=== PATIENT | female | born 1950 | race Caucasian/White ===

== ENCOUNTER → 2017-05-01 | Outpatient (CLI) | payer MEDICARE, OTHER | END | disposition home or self-care (01) | LOC: KCIC MRI 15:41 | DX: S83.242D Other tear of medial meniscus, current injury, left knee, subsequent encounter (principal); M17.12 Unilateral primary osteoarthritis, left knee; M22.42 Chondromalacia patellae, left knee; X58.XXXD Exposure to other specified factors, subsequent encounter | CPT/HCPCS: 73721 ==

== ENCOUNTER 2019-12-04 23:40 | Inpatient (IN) | payer MEDICARE, OTHER ==
[~2019-12-04] VITALS: Ht 167.6 cm; Wt 106.5 kg
[2019-12-04 23:30] VITALS: BP 166/101
--- NOTE | 2019-12-04 23:30 | NUR ---
Admit from [facility] ED. DX: acute appendicitis. Lianet Cordova is an obese white female admitted to room 416 w/ c/o RLQ pain and nausea today. Covid swab done x2 per lab protocol. Call light in reach.
[2019-12-05] VITALS (12 sets, daily range): BP systolic 102–139; BP diastolic 58–81
[2019-12-05] MEDS ORDERED: HYDROmorphone 2 MG/ML VIAL IV PRN ×2 (00:30)
[2019-12-05] MEDS ORDERED: ONDANSETRON PF 4 MG/2 ML VIAL. IVP PRN ×2 (00:30→10:15)
[2019-12-05] MEDS ORDERED: MORPHINE SULFATE 2 MG/ML VIAL. IV PRN (00:30)
[2019-12-05] MEDS: HEPARIN for SUB-Q USE 5,000 UNIT/ML VIAL. SQ SCH ×3 (06:00→22:31)
[2019-12-05] MEDS: PIPERACILLIN/TAZOBACTAM 4.5 GM in IV NORMAL SALINE 100ML 100 ML IV SCH ×4 (06:00→23:53)
--- NOTE | 2019-12-05 07:29 | NUR ---
Heparin held d/t surgery today.
[2019-12-05 07:49] LABS: BASO % 0 % (0-3); EOS % 0 % (0-3); HEMATOCRIT 39.6 % (36.0-47.0); HEMOGLOBIN 13.6 g/dL (12.0-15.5); LYMPH # 1.1 x10^3/uL (1.0-4.8); LYMPH % 10 % (24-48); MEAN CORPUSCULAR HEMOGLOBIN 31 pg (25-35); MEAN CORPUSCULAR HGB CONC 34 g/dL (31-37); MEAN CORPUSCULAR VOLUME 89 fL (79-100); MONO # 0.9 x10^3/uL (0.0-1.1); MONO % 8 % (0-9); NEUT # 9.6 x10^3/uL (1.8-7.7); NEUT % 82 % (31-73); PLATELET COUNT 250 x10^3/uL (140-400); RED BLOOD COUNT 4.44 x10^6/uL (3.50-5.40); RED CELL DISTRIBUTION WIDTH 13.7 % (11.5-14.5); WHITE BLOOD COUNT 11.7 x10^3/uL (4.0-11.0)
[2019-12-05 08:04] LABS: PROTHROMBIN TIME PATIENT 13.7 SEC (11.7-14.0)
--- NOTE | 2019-12-05 08:22 | PDOC2 ---
NICKIE CONTI POLE TESTER 12/05/19 0822: CONSULT Date of Consult Date of Consult DATE: 12/05/19 TIME: 08:19 Reason for Consult Reason for Consult: appendicitis Referring Physician Referring Physician: MARK HERNANDEZ Identification/Chief Complaint Chief Complaint abdominal pain Source Source: Chart review, Patient History of Present Illness Reason for Visit: Acute onset RLQ pain starting yesterday. Associated nausea, chills. No emesis, no constipation or diarrhea. Pain constant, movement worsened, nothing improved it. Now better after medication. No similar symptoms in past Past Medical History Cardiovascular: HTN, Hyperlipidemia Past Surgical History Past Surgical History: No pertinent history Family History Family History: Other (noncontributory to current illness ) Social History No ALCOHOL: rare Drugs: None Lives: with Family Current Medications Current Medications Current Medications Piperacillin Sod/ Tazobactam Sod 4.5 gm/Sodium Chloride 100 ml @ 200 mls/hr Q6HRS IV Last administered on 12/05/19at 06:00; Start 12/05/19 at 06:00 Morphine Sulfate (Morphine Sulfate) 2 mg PRN Q1HR PRN IV PAIN; Start 12/05/19 at 00:30 Hydromorphone HCl (Dilaudid) 0.2 mg PRN Q1HR PRN IV PAIN; Start 12/05/19 at 00:30 Hydromorphone HCl (Dilaudid) 0.4 mg PRN Q1HR PRN IV PAIN; Start 12/05/19 at 00:30 Heparin Sodium (Porcine) (Heparin Sodium) 5,000 unit Q8HRS SQ ; Start 12/05/19 at 06:00 Ondansetron HCl (Zofran) 4 mg PRN Q6HRS PRN IVP NAUSEA/VOMITING; Start 12/05/19 at 00:30 Active Scripts Active Allergies Allergies: Coded Allergies: No Known Drug Allergies (Unverified , 05/29/13) ROS General: YES: Fatigue, Other (no fevers ) PSYCHOLOGICAL ROS: No: Anxiety, Depression Eyes: No Blurry vision, No Double vision HEENT: No: Sore Throat Hematological and Lymphatic: No: Bleeding Problems, Blood Clots Respiratory: No: Cough, Shortness of breath Cardiovascular: No Chest Pain, No Palpitations Gastrointestinal: Yes Other (see hpi) Genitourinary: No Dysuria, No Hematuria Musculoskeletal: No Joint Pain, No Muscle Pain Neurological: No Impaired Coord/balance, No Numbness/Tingling Skin: No Pruritus, No Rash Physical Exam General: Alert, Oriented X3, Cooperative HEENT: Atraumatic, PERRLA Lungs: Clear to auscultation, Normal air movement Heart: Regular rate, Normal S1, Normal S2 Abdomen: Soft, Other (TTP RLQ, no guarding or rebound ) Extremities: No clubbing, No cyanosis Skin: No rashes, No breakdown Neuro: Normal gait, Normal speech Psych/Mental Status: Mental status NL, Mood NL MUSCULOSKELETAL: No deformity, No swelling Vitals VITALS Vital Signs Date Time Temp Pulse Resp B/P (MAP) Pulse Ox O2 Delivery O2 Flow Rate FiO2 12/05/19 03:00 98.4 94 18 116/60 (78) 98 Room Air 98.4 Labs Labs Laboratory Tests Test 12/05/19 00:15 12/05/19 07:15 SARS-CoV-2 Antigen (Rapid) Negative (NEGATIVE) White Blood Count 11.7 x10^3/uL (4.0-11.0) Red Blood Count 4.44 x10^6/uL (3.50-5.40) Hemoglobin 13.6 g/dL (12.0-15.5) Hematocrit 39.6 % (36.0-47.0) Mean Corpuscular Volume 89 fL (79-100) Mean Corpuscular Hemoglobin 31 pg (25-35) Mean Corpuscular Hemoglobin Concent 34 g/dL (31-37) Red Cell Distribution Width 13.7 % (11.5-14.5) Platelet Count 250 x10^3/uL (140-400) Neutrophils (%) (Auto) 82 % (31-73) Lymphocytes (%) (Auto) 10 % (24-48) Monocytes (%) (Auto) 8 % (0-9) Eosinophils (%) (Auto) 0 % (0-3) Basophils (%) (Auto) 0 % (0-3) Neutrophils # (Auto) 9.6 x10^3/uL (1.8-7.7) Lymphocytes # (Auto) 1.1 x10^3/uL (1.0-4.8) Monocytes # (Auto) 0.9 x10^3/uL (0.0-1.1) Eosinophils # (Auto) 0.0 x10^3/uL (0.0-0.7) Basophils # (Auto) 0.0 x10^3/uL (0.0-0.2) Prothrombin Time 13.7 SEC (11.7-14.0) Prothromb Time International Ratio 1.1 (0.8-1.1) Activated Partial Thromboplast Time 40 SEC (24-38) Laboratory Tests Test 12/05/19 00:15 12/05/19 07:15 SARS-CoV-2 Antigen (Rapid) Negative (NEGATIVE) White Blood Count 11.7 x10^3/uL (4.0-11.0) Red Blood Count 4.44 x10^6/uL (3.50-5.40) Hemoglobin 13.6 g/dL (12.0-15.5) Hematocrit 39.6 % (36.0-47.0) Mean Corpuscular Volume 89 fL (79-100) Mean Corpuscular Hemoglobin 31 pg (25-35) Mean Corpuscular Hemoglobin Concent 34 g/dL (31-37) Red Cell Distribution Width 13.7 % (11.5-14.5) Platelet Count 250 x10^3/uL (140-400) Neutrophils (%) (Auto) 82 % (31-73) Lymphocytes (%) (Auto) 10 % (24-48) Monocytes (%) (Auto) 8 % (0-9) Eosinophils (%) (Auto) 0 % (0-3) Basophils (%) (Auto) 0 % (0-3) Neutrophils # (Auto) 9.6 x10^3/uL (1.8-7.7) Lymphocytes # (Auto) 1.1 x10^3/uL (1.0-4.8) Monocytes # (Auto) 0.9 x10^3/uL (0.0-1.1) Eosinophils # (Auto) 0.0 x10^3/uL (0.0-0.7) Basophils # (Auto) 0.0 x10^3/uL (0.0-0.2) Prothrombin Time 13.7 SEC (11.7-14.0) Prothromb Time International Ratio 1.1 (0.8-1.1) Activated Partial Thromboplast Time 40 SEC (24-38) Assessment/Plan Assessment/Plan acute appendicitis plan lap appy today MARQUIS MCKEON MD 12/05/19 1231: CONSULT Assessment/Plan Assessment/Plan Pt seen and examined by myself; 69 year old female with abdominal pain X 1 day, localized to RLQ, evaluation consistent with appendicitis. PMH/PSH/ROS/SH as above; exam: alert, oriented, lungs clear, heart RR and R, abdomen obese, tender in RLQ, ext neg for edema. A/P) Suspect appendicitis, recommend lap appy. The details and risks of surgery were discussed with the patient. She would like to proceed. NICKIE CONTI APRN Dec 05, 2019 08:22 MARQUIS MCKEON MD Dec 05, 2019 12:31
[2019-12-05 08:28] LABS: ALBUMIN 3.3 g/dL (3.4-5.0); ALBUMIN/GLOBULIN RATIO 1.1 (1.0-1.7); CALCIUM 8.6 mg/dL (8.5-10.1); CREATININE 0.9 mg/dL (0.6-1.0); GFR 61.9; POTASSIUM 4.1 mmol/L (3.5-5.1); TOTAL BILIRUBIN 0.7 mg/dL (0.2-1.0); TOTAL PROTEIN 6.4 g/dL (6.4-8.2)
[2019-12-05] MEDS ORDERED: DESFLURANE > 120 MINUTES IH ONE (09:01)
[2019-12-05] MEDS ORDERED: PROPOFOL 10 MG/ML (20ML) VIAL. IV ONE (09:01)
[2019-12-05] MEDS ORDERED: LIDOCAINE 2% PF 5 ML VIAL. ONE (09:01)
[2019-12-05] MEDS ORDERED: ONDANSETRON PF 4 MG/2 ML VIAL. ONE (09:01)
[2019-12-05] MEDS ORDERED: ROCURONIUM 50 MG/5 ML VIAL. ONE ×2 (09:02→09:14)
[2019-12-05] MEDS ORDERED: fentaNYL PF VIAL 100 MCG/2 ML VIAL ONE ×2 (09:02→12:57)
[2019-12-05] MEDS ORDERED: HYDROmorphone 2 MG/ML VIAL ONE (09:15)
--- NOTE | 2019-12-05 09:44 | NUR ---
SW following. Discussed with RN, pt from [facility], room air, NPO, gets around, COVID-19 negative. Pt having surgery today to remove appendix. RN advised no SW needs at this time. SW will continue to follow.
[2019-12-05] MEDS ORDERED: IV RINGERS,LACTATED 1000ML 1,000 ML IV SCH (10:01)
[2019-12-05] MEDS ORDERED: BUPIVACAINE-EPI 0.5%-1:200000 MPF 30 ML VIAL. ONE (10:09)
[2019-12-05] MEDS ORDERED: MORPHINE SULFATE 2 MG/ML VIAL. IVP PRN (10:15)
[2019-12-05] MEDS ORDERED: fentaNYL PF VIAL 100 MCG/2 ML VIAL IVP PRN (10:15)
[2019-12-05] MEDS ORDERED: LIDOCAINE 1% PF 2 ML VIAL. ID PRN (10:15)
[2019-12-05] MEDS ORDERED: PROCHLORPERAZINE 10 MG/2 ML VIAL. IVP PRN (10:15)
[2019-12-05] MEDS ORDERED: HYDROmorphone 2 MG/ML VIAL IVP PRN (10:15)
--- NOTE | 2019-12-05 10:54 | NUR ---
Pt off unit for surgery.
[2019-12-05] MEDS ORDERED: SUCCINYLCHOLINE 200 MG/10 ML VIAL. ONE (11:35)
[2019-12-05] MEDS ORDERED: NEOSTIGMINE METHYLSULFATE 5 MG/5 ML SYRINGE. ONE (12:10)
[2019-12-05] MEDS ORDERED: GLYCOPYRROLATE 1 MG/5 ML VIAL. ONE (12:10)
--- NOTE | 2019-12-05 12:32 | PDOC4 ---
Operative Note Operative Note Preoperative Diagnosis: Acute Appendicitis Postoperative Diagnosis: Same Procedure: Laparoscopic appendectomy Surgeon: Jourdan Anesthesia: Gen. EBL: 10 mL Specimen: Appendix to pathology Drains: None Complications: None Indication: The patient is a 69 year-old female who reported to the emergency department with abdominal pain. The evaluation is consistent with acute appendicitis. The patient was offered surgical treatment with a laparoscopic appendectomy. The risks of surgery were discussed which include bleeding, infection, visceral injury, pain, anesthetic risk, potential need for additional surgery or procedure. The patient understands and would like to proceed. Description: The patient was taken to the operating room and placed supine on the operating table. Gen. anesthesia was performed. The abdomen was prepped with ChloraPrep and draped in a standard surgical manner. A LLQ incision was made through which a visualized 5 mm trocar was inserted. A pneumoperitoneum was created and the laparoscope was introduced. In the left lower quadrant a 5 mm trocar was inserted. In the suprapubic region a 12 mm trocar was inserted. The appendix was identified and appeared inflamed consistent with acute appendicitis. There was no clear evidence of perforation or periappendiceal abscess. The mesoappendix was bluntly from the appendix. The mesoappendix was controlled using several clips and it was divided. The appendix was then amputated off the cecum using an Endo DANIEL 45 stapling device. The appendix was then placed in an endoscopic bag and extracted at the suprapubic incision site. The fascia there was closed with 0 Vicryl and infiltrated with half percent Marcaine with epinephrine. The RLQ was visualized and the staple line appeared well intact and hemostasis was good. No other abnormalities were identified grossly. The remaining ports were removed and the pneumoperitoneum was relieved. The skin at all incision sites was closed with 4-0 Monocryl. Steri-Strips and dressings were applied. The patient tolerated the procedure well and was sent to the recovery room in stable condition. At the end of the case all counts were correct. MARQUIS MCKEON MD Dec 05, 2019 12:32
[2019-12-05] MEDS ORDERED: HYDROcodone/APAP 5/325MG 1 TAB TABLET PO PRN ×2 (12:45)
[2019-12-05] MEDS: fentaNYL PF VIAL 100 MCG/2 ML VIAL IVP PRN ×2 (13:02→13:10)
--- NOTE | 2019-12-05 13:36 | SSS ---
ADMIT DATE: CHIEF COMPLAINT: Appendicitis. HISTORY OF PRESENT ILLNESS: The patient is a pleasant middle-aged female who presented with abdominal pain to the ER. She has appendicitis. She has now been admitted to medical floor. She is now going to the OR. She had a laparoscopic appendectomy a few minutes ago. She is being examined in the postoperative area. I just discussed the case with Dr. Soliman who was the surgeon. He plans to discharge tomorrow. PAST MEDICAL HISTORY: Hypertension, hyperlipidemia, constipation, arthritis. FAMILY HISTORY: Diabetes. SOCIAL HISTORY: She does not drink, smoke or take drugs. MEDICATIONS: Reviewed, please refer to the MRAD. REVIEW OF SYSTEMS: Unobtainable, the patient is sedated. PHYSICAL EXAMINATION: VITALS: GENERAL: murmurs were noted. PHYSICAL EXAMINATION: VITALS: Within normal limits and are stable. GENERAL: She is sedated. HEENT: Normal cephalic atraumatic, external auditory canals are patent EYES: Extraocular muscles are intact, pupils are equally round and reactive to light and accommodation MUSCULOSKELETAL: Well developed, well nourished, good range of motion ENDOCRINE: No thyromegaly was palpated LYMPHATICS: No cervical chain or axillary nodes were noted HEMATOPOIETIC: No bruising NECK: Supple, no JVD, no thyromegaly was noted. LUNGS: Clear to auscultation in all lung sebastian without rhonchi or wheezing. HEART: RRR, S1, S2 present. Peripheral pulses intact, no obvious murmurs were noted. ABDOMEN: She has clean, dry and intact dressings at the trocar sites nocturia. NEUROLOGIC: She is sedated. PSYCHIATRIC: She is sedated. EXTREMITIES: Without any cyanosis, clubbing, or edema. Pedal pulses intact, Homans sign is negative. SKIN: No ulcerations or rashes, good skin turgor, no jaundice. VASCULAR: Good capillary refill, neurovascular bundle appears to be intact. ASSESSMENT AND PLAN: Postop laparoscopic appendectomy. She is doing well. We will do wound care, home meds, DVT prophylaxis. Full code. IV fluids, p.r.n. pain meds. Hope to discharge tomorrow if stable. NATALIE DAVEY DO DR: NELSON/shakira JOB#: [id number] / [id number]
[2019-12-06 03:09] VITALS: BP 112/62
[2019-12-06] MEDS: PIPERACILLIN/TAZOBACTAM 4.5 GM in IV NORMAL SALINE 100ML 100 ML IV SCH ×2 (05:36→10:35)
[2019-12-06] MEDS: HEPARIN for SUB-Q USE 5,000 UNIT/ML VIAL. SQ SCH ×2 (05:45→10:35)
[2019-12-06 07:00] VITALS: BP 119/70
--- NOTE | 2019-12-06 09:46 | PDOC ---
SURGICAL PROGRESS NOTE DATE: 12/06/19 TIME: 09:45 Subjective doing well pain much improved no nausea Vital Signs Vital Signs Date Time Temp Pulse Resp B/P (MAP) Pulse Ox O2 Delivery O2 Flow Rate FiO2 12/06/19 08:00 Room Air 12/06/19 07:00 98.2 73 18 119/70 (86) 94 98.2 12/05/19 16:10 3.0 I&O Intake and Output 12/06/19 07:00 Intake Total 1720 ml Output Total 110 ml Balance 1610 ml Intake Oral 720 ml IV Total 1000 ml Output Urine Total 100 ml Estimated Blood Loss 10 ml # Voids 3 General: Alert, Oriented X3, Cooperative Abdomen: Soft, Other (lap sites dry, incisional TTP) Labs Laboratory Tests Test 12/05/19 00:15 12/05/19 07:15 Coronavirus (PCR) Not detected (Not Detected) SARS-CoV-2 Antigen (Rapid) Negative (NEGATIVE) White Blood Count 11.7 x10^3/uL (4.0-11.0) Red Blood Count 4.44 x10^6/uL (3.50-5.40) Hemoglobin 13.6 g/dL (12.0-15.5) Hematocrit 39.6 % (36.0-47.0) Mean Corpuscular Volume 89 fL (79-100) Mean Corpuscular Hemoglobin 31 pg (25-35) Mean Corpuscular Hemoglobin Concent 34 g/dL (31-37) Red Cell Distribution Width 13.7 % (11.5-14.5) Platelet Count 250 x10^3/uL (140-400) Neutrophils (%) (Auto) 82 % (31-73) Lymphocytes (%) (Auto) 10 % (24-48) Monocytes (%) (Auto) 8 % (0-9) Eosinophils (%) (Auto) 0 % (0-3) Basophils (%) (Auto) 0 % (0-3) Neutrophils # (Auto) 9.6 x10^3/uL (1.8-7.7) Lymphocytes # (Auto) 1.1 x10^3/uL (1.0-4.8) Monocytes # (Auto) 0.9 x10^3/uL (0.0-1.1) Eosinophils # (Auto) 0.0 x10^3/uL (0.0-0.7) Basophils # (Auto) 0.0 x10^3/uL (0.0-0.2) Prothrombin Time 13.7 SEC (11.7-14.0) Prothromb Time International Ratio 1.1 (0.8-1.1) Activated Partial Thromboplast Time 40 SEC (24-38) Sodium Level 138 mmol/L (136-145) Potassium Level 4.1 mmol/L (3.5-5.1) Chloride Level 104 mmol/L (98-107) Carbon Dioxide Level 25 mmol/L (21-32) Anion Gap 9 (6-14) Blood Urea Nitrogen 11 mg/dL (7-20) Creatinine 0.9 mg/dL (0.6-1.0) Estimated GFR (Cockcroft-Gault) 61.9 BUN/Creatinine Ratio 12 (6-20) Glucose Level 107 mg/dL (70-99) Calcium Level 8.6 mg/dL (8.5-10.1) Total Bilirubin 0.7 mg/dL (0.2-1.0) Aspartate Amino Transf (AST/SGOT) 23 U/L (15-37) Alanine Aminotransferase (ALT/SGPT) 52 U/L (14-59) Alkaline Phosphatase 55 U/L (46-116) Total Protein 6.4 g/dL (6.4-8.2) Albumin 3.3 g/dL (3.4-5.0) Albumin/Globulin Ratio 1.1 (1.0-1.7) Assessment/Plan s/p appy ok to dc home FU 2 weeks script sent Justicifation of Admission Dx: Justifications for Admission: Justification of Admission Dx: Yes Comments: appendicitis NICKIE CONTI MANAGER COSTING Dec 06, 2019 09:46
[2019-12-06] MEDS ORDERED: HYDR-2761 PO (09:47)
--- NOTE | 2019-12-06 10:11 | NUR ---
SW following. Discussed with RN, pt from [facility]. Diet advanced to GI soft - if tolerates GI soft, pt may be able to discharge after lunch. RN advised no SW needs at this time. SW will continue to follow.
[2019-12-06 11:03] VITALS: BP 125/61
--- NOTE | 2019-12-06 11:30 | SNU/HH DC ---
DISCHARGE WITH HOME HEALTH DISCHARGE INFORMATION: Condition on Discharge: Stable CODE STATUS: Code Status: Full HOME HEALTH: Face to Face: I certify this patient is under my care and that I, or a nurse practitioner or physician's bilingual office assistant working with me, had a face to face encounter that meets the physician face to face encounter requirements with this patient on []. Medical Complications: Other (Recent appendectomy) Detention For: Assess & Educate Safety RN For Eval/Treatment: Yes Physical Therapy For: Evalulation/Treatment Occupational Therapy For: Evaluation/Treatment Home Health Aide For: Self-care DIRECTOR HOME HEALTH For: Community Resources Pt Meets Homebound Status: Poor coordination w/ amb. POST DISCHARGE ORDERS: DIET AFTER DISCHARGE: Cardiac CERTIFICATION STATEMENT: Certification Statement: Certification Statement: Based on the above finding, I certify that this patient is confined to the home and needs intermittent detention care, physical therapy and/or speech therapy, or continues to need occupational therapy.~ This patient is under my care, and I have initiated the establishment of the plan of care.~ This patient will be followed by myself or a community physician who will periodically review the plan of care. Home Meds Active Scripts Hydrocodone Bit/Acetaminophen (HYDROCODONE-APAP 5-325 ) 1 Tab Tablet, 1 TAB PO PRN Q4HRS PRN for PAIN MILD TO MOD, #15 TAB 0 Refills Prov:NICKIE CONTI APRN 12/06/19 NATALIE DAVEY III DO Dec 06, 2019 11:30
--- NOTE | 2019-12-06 11:46 | PDOC ---
[employer] PROGRESS NOTE Date of Service DOS: DATE: 12/06/19 TIME: 11:33 History of Present Illness History of Present Illness 12/06/2019 Patient was seen in patient room Patient condition is improving JULIA DUMONT family service caseworker Vitals/I&O Vitals/I&O: Vital Signs Date Time Temp Pulse Resp B/P (MAP) Pulse Ox O2 Delivery O2 Flow Rate FiO2 12/06/19 11:03 98.1 62 18 125/61 (82) 94 Room Air 98.1 12/05/19 16:10 3.0 I & O 12/05/19 12/05/19 12/06/19 15:00 23:00 07:00 Intake Total 1000 ml 480 ml 240 ml Output Total 110 ml Balance 890 ml 480 ml 240 ml Physical Exam General: Alert, Oriented X3, Cooperative Heart: Regular rate, Normal S1, Normal S2 Abdomen: Soft, Other (lap sites dry, incisional TTP) Extremities: No clubbing, No cyanosis Skin: No rashes, No breakdown, Other (no sign of bleeding from the surgical site) Review of Systems Review of Systems: No dizziness No vomiting Assessment and Plan Assessmemt and Plan 11/06/2019 Assessment Acute Appendicitis Plan 1) Discharge this afternoon 2) Home med 3) Subspecialty input appreciated 4) DVT prophylaxis 5) Full code Comment Review of Relevant I have reviewed the following items portia (where applicable) has been applied. Justifications for Admission Other Justification Appendicitis NATALIE DAVEY III DO Dec 06, 2019 11:46
--- NOTE | 2019-12-06 14:10 | NUR ---
Discharge Note: [facility] Discharge instructions and discharge home medications reviewed with Patient and a copy given. All questions have been answered and understanding verbalized. The following instructions and handouts were given: information about appendicitis, lap appy, medications, follow up appointments, surgical incision care, etc. Discontinued lines and drains: IV lines in left forearm and left hand removed, catheter tip intact. Patient discharged to home with home health with roommate, wheelchair used for mobility to discharge vehicle. Addendum: 12/06/19 at 1414 by AUNDREA RUANO RN Patient discharged home with self care, no home health needed.
--- NOTE | 2019-12-08 13:47 | DS ---
DATE OF DISCHARGE: 12/06/2019 ADMISSION DIAGNOSIS: Appendicitis. DISCHARGE DIAGNOSIS: Postop day #2, laparoscopic appendectomy. HOSPITAL COURSE: The patient is a pleasant 69-year-old female who presented with appendicitis. She was admitted. We consulted General Surgery. She was taken for laparoscopic appendectomy. Post-procedure, she did well. We discharged to home. DISPOSITION: Home. ACTIVITY: As tolerated. DIET: Low sodium. MEDICATIONS: Please see the MRAD. TOTAL TIME: 34 minutes. NATALIE DAVEY DO DR: NELSON/shakira JOB#: [id number] / [id number]
--- NOTE | 2019-12-09 16:06 | PATHOLOGY ---
[facility] Accession Number: [id number] . 01 Material submitted: . appendix - APPENDIX . 01 Clinical history: . ACUTE APPENDICITIS . 02 Diagnosis: Appendix, appendectomy: - Acute appendicitis with focal serosal exudate. - Hyperplastic changes of distal appendiceal mucosa. (JPM:lakshmi; 12/09/2019) S 12/09/2019 1328 Local . 02 Comment: There is no evidence of rupture. There is no evidence of malignancy. (JPM:lakshmi; 12/09/2019) . 02 Electronically signed: . Aaron Galindo MD, Pathologist NPI- [id number] . 01 Gross description: . The specimen is received in formalin, labeled "Atkins, Lianet, appendix" and consists of an appendix measuring 6.4 cm in length and up to 1.1 cm in diameter with mesoappendix measuring 3.0 cm thick. The serosa is michelle and hemorrhagic with thick exudate. The margin is closed with a line of betty and inked black. Sectioning reveals a dilated lumen containing brown fecal material. Senior [employer] Software Engineer sections are submitted in A1-A2. (SDY; 12/06/2019) SYU/SYU 12/06/2019 1344 Local . 02 Pathologist provided ICD-10: K35.80 . 02 CPT . 556839 Specimen Comment: A courtesy copy of this report has been sent to [phone], [phone] Specimen Comment: [phone] Specimen Comment: Report sent to ,DR BRANCH / DR RICE Performed at: [address], [place], [place] [id number] MD Jarrod Kramer MD Phone: [phone] Performed at: [address] [id number] MD Aaron Galindo MD Phone: [phone]
== END 2019-12-06 14:10 | disposition home or self-care (01) | DRG 342 ==
LOC: 4 NORTH 23:40
PROVIDERS: ADMIT Family Medicine; ATTEND Family Medicine
PROC: 0DTJ4ZZ Resection of Appendix, Percutaneous Endoscopic Approach (ICD-10-PCS; principal; 2019-12-05 11:30)
DX: K35.80 Unspecified acute appendicitis (principal); E44.0 Moderate protein-calorie malnutrition; Z20.828 Contact with and (suspected) exposure to other viral communicable diseases; E78.5 Hyperlipidemia, unspecified; I10 Essential (primary) hypertension; M19.90 Unspecified osteoarthritis, unspecified site; K59.00 Constipation, unspecified; Z83.3 Family history of diabetes mellitus
CPT/HCPCS: 36415; 80053; 85025; 85610; 85730; 87426; 88304; A7015; J0330; J1170; J1644; J2270; J2405; J2543; J2704; J2710; J3010; J3490; J7030; J7120; G0378; U0003-CS